=== PATIENT | female | born 1980 | race Caucasian/White ===

== ENCOUNTER 2017-11-29 02:26 | Emergency (ER) | payer BC ==
[~2017-11-29] VITALS: Ht 154.9 cm; Wt 51.3 kg
[2017-11-29 02:32] VITALS: BP 112/66
--- NOTE | 2017-11-29 02:33 | NUR ---
[facility] RA C/C GEN WEAKNESS. SECONDARY TO ETOH. VSS. NEG ACUTE DISTRESS. STABLE CONDTION. SAFETY MEASURES IN PLACE. AWATING MD PATEL.
[2017-11-29] MEDS ORDERED: IV NS 0.9% 1,000 ML BAG IV ONE (03:30)
== END 2017-11-29 04:09 | disposition home or self-care (01) ==
LOC: ER 02:28
DX: F10.129 Alcohol abuse with intoxication, unspecified (principal); F41.9 Anxiety disorder, unspecified; F32.9 Major depressive disorder, single episode, unspecified; Y90.9 Presence of alcohol in blood, level not specified; Z98.890 Other specified postprocedural states
CPT/HCPCS: 99283; A4606; J7030; Z7610